=== PATIENT | male | born 1940 | race Caucasian/White ===

== ENCOUNTER 2018-05-05 15:50 | Inpatient (IN) ==
[2018-05-05] MEDS ORDERED: ALBUTEROL/IPRATROPIUM 3 ML NEB RESP TX STA (17:06)
[2018-05-05 17:20] LABS: Basophils % 0.2 % (0.0-0.8); Hematocrit 35.6 VOL% (42.0-52.0); Hemoglobin 11.3 GM/DL (14.0-18.0); Immature Granulocytes % 2.1 %; Immature Granulocytes Absolute 0.29 #; Lymphocytes # 1.8 10*3/uL (1.4-4.0); Lymphocytes % 13.3 % (21.2-54.2); Mean Corpuscular HGB Conc 31.7 GM/DL (32-36); Mean Corpuscular Hemoglobin 30 PG (27-34); Mean Corpuscular Volume 95.2 FL (87-102); Mean Platelet Volume 9.6 FL (9.6-12.0); Monocytes # 0.2 10*3/uL (0.11-0.8); Monocytes % 1.1 % (1.7-12.7); Neutrophils # 11.6 10*3/uL (1.4-7.4); Neutrophils % 83.3 % (38.7-73.9); Platelet Count 293 T/CUMM (130-400); Red Blood Count 3.74 MC/CUMM (3.8-5.5); Red Cell Distribution Width 14.3 % (9.3-17.3); White Blood Count 13.9 T/CUMM (4-12)
[2018-05-05 17:28] LABS: PT Patient Result 10.9 SECS; Partial Thromboplastin Time 28.3 SECS (0-40)
[2018-05-05 17:34] LABS: Alanine Aminotransferase 17 U/L (16-61); Albumin 3.2 G/DL (3.4-5.0); Alkaline Phosphatase 72 U/L (45-117); Aspartate Amino Transferase 11 U/L (0-37); Bilirubin,Total < 0.39 MG/DL (0.2-1.0); Blood Urea Nitrogen 17 MG/DL (7-18); Calcium 8.8 MG/DL (8.5-10.1); Glucose 347 MG/DL (74-106); Osmolality,Calculated 277.7 MOS/KG (273-304); Potassium 4.3 MMOL/L (3.5-5.1); Sodium 131 MMOL/L (136-145); Total Protein 7.1 G/DL (6.4-8.3); Troponin I Only 0.033 NG/ML (0.00-0.045)
[2018-05-05] MEDS ORDERED: methylPREDNISolone SOD SUC 125 MG/2 ML VIAL IV STA (18:46)
[2018-05-05] MEDS ORDERED: ALBUTEROL 2.5 MG/3 ML NEB RESP TX PRN (22:56)
[2018-05-05] MEDS ORDERED: MORPHINE 4 MG/1 ML VIAL IV PRN (23:01)
[2018-05-05] MEDS ORDERED: GLUCAGON 1 MG VIAL IM PRN (23:01)
[2018-05-05] MEDS ORDERED: DEXTROSE 50% 25 GM/50 ML VIAL IV PRN (23:01)
[2018-05-05] MEDS ORDERED: ONDANSETRON 4 MG/2 ML VIAL IV PRN (23:01)
[2018-05-05] MEDS ORDERED: LEVOFLOXACIN INJ 150 ML IV ONE (23:16)
[2018-05-05] MEDS: LEVOFLOXACIN INJ 750 MG in PREMIX 1 EACH IV SCH (23:24)
[2018-05-05] MEDS: ACETAMINOPHEN 325 MG TABLET PO PRN (23:27)
[2018-05-06] MEDS: ALBUTEROL/IPRATROPIUM 3 ML NEB RESP TX SCH ×4 (01:18→19:15)
[2018-05-06] MEDS: AZTREONAM 2,000 MG in SYRINGE 1 EACH IV SCH ×4 (03:55→20:53)
[2018-05-06 07:31] LABS: Basophils % 0.1 % (0.0-0.8); Hematocrit 31.9 VOL% (42.0-52.0); Hemoglobin 10.4 GM/DL (14.0-18.0); Immature Granulocytes % 1.7 %; Immature Granulocytes Absolute 0.19 #; Lymphocytes # 2.7 10*3/uL (1.4-4.0); Lymphocytes % 24.4 % (21.2-54.2); Mean Corpuscular HGB Conc 32.6 GM/DL (32-36); Mean Corpuscular Hemoglobin 30 PG (27-34); Mean Corpuscular Volume 92.2 FL (87-102); Mean Platelet Volume 9.2 FL (9.6-12.0); Monocytes # 0.5 10*3/uL (0.11-0.8); Monocytes % 4.4 % (1.7-12.7); Neutrophils # 7.8 10*3/uL (1.4-7.4); Neutrophils % 69.4 % (38.7-73.9); Platelet Count 282 T/CUMM (130-400); Red Blood Count 3.46 MC/CUMM (3.8-5.5); White Blood Count 11.2 T/CUMM (4-12)
[2018-05-06 07:49] LABS: Calcium 8.8 MG/DL (8.5-10.1); Osmolality,Calculated 265.9 MOS/KG (273-304); Potassium 4.3 MMOL/L (3.5-5.1)
[2018-05-06] MEDS: ENOXAPARIN 40 MG/0.4 ML SYRINGE SUBCUT SCH (09:46)
[2018-05-06] MEDS: methylPREDNISolone SOD SUC 40 MG/1 ML VIAL IV SCH (09:48)
[2018-05-06] MEDS: INSULIN REGULAR 100 UNIT/ML SUBCUT SCH ×4 (09:51→20:53)
[2018-05-06] MEDS: SODIUM CHLORIDE 0.9% 1,000 ML IV SCH (09:58)
[2018-05-06] MEDS: THEOPHYLLINE ER 300 MG TABLET PO SCH ×2 (15:35→20:52)
[2018-05-06] MEDS: ACETAMINOPHEN 325 MG TABLET PO PRN (20:52)
[2018-05-06] MEDS: GABAPENTIN 300 MG CAPSULE PO SCH (20:52)
[2018-05-06] MEDS: LEVOFLOXACIN INJ 750 MG in PREMIX 1 EACH IV SCH (23:31)
[2018-05-07] MEDS ORDERED: MELATONIN 3 MG TABLET PO ONE (00:30)
[2018-05-07] MEDS: AZTREONAM 2,000 MG in SYRINGE 1 EACH IV SCH ×4 (03:56→21:38)
[2018-05-07] MEDS: SODIUM CHLORIDE 0.9% 1,000 ML IV SCH (04:00)
[2018-05-07 06:59] LABS: Basophils % 0.2 % (0.0-0.8); Hematocrit 31.2 VOL% (42.0-52.0); Hemoglobin 10.2 GM/DL (14.0-18.0); Immature Granulocytes % 1.5 %; Immature Granulocytes Absolute 0.26 #; Lymphocytes # 3.4 10*3/uL (1.4-4.0); Lymphocytes % 19.9 % (21.2-54.2); Mean Corpuscular HGB Conc 32.7 GM/DL (32-36); Mean Corpuscular Hemoglobin 30 PG (27-34); Mean Corpuscular Volume 91.8 FL (87-102); Mean Platelet Volume 8.9 FL (9.6-12.0); Monocytes # 1.3 10*3/uL (0.11-0.8); Monocytes % 7.5 % (1.7-12.7); Neutrophils # 12.1 10*3/uL (1.4-7.4); Neutrophils % 70.9 % (38.7-73.9); Platelet Count 278 T/CUMM (130-400); Red Cell Distribution Width 14.2 % (9.3-17.3); White Blood Count 17.1 T/CUMM (4-12)
[2018-05-07 07:16] LABS: Calcium 8.9 MG/DL (8.5-10.1); Osmolality,Calculated 269.2 MOS/KG (273-304); Potassium 4.4 MMOL/L (3.5-5.1)
[2018-05-07] MEDS ORDERED: ALBUTEROL 2.5 MG/3 ML NEB RESP TX PRN (07:45)
[2018-05-07] MEDS: ALBUTEROL/IPRATROPIUM 3 ML NEB RESP TX SCH ×4 (07:53→19:18)
[2018-05-07] MEDS ORDERED: Umeclidinium Bromide [Incruse Ellipta] 1 PUFF INH SCH (09:00)
[2018-05-07] MEDS: THEOPHYLLINE ER 300 MG TABLET PO SCH ×2 (09:50→21:37)
[2018-05-07] MEDS: ACETAMINOPHEN 325 MG TABLET PO PRN ×2 (09:50→21:38)
[2018-05-07] MEDS: metFORMIN 500 MG TABLET PO SCH ×2 (09:51→17:24)
[2018-05-07] MEDS: FUROSEMIDE 20 MG TABLET PO SCH (09:51)
[2018-05-07] MEDS: METOPROLOL SUCCINATE XL 25 MG TABLET PO SCH (09:51)
[2018-05-07] MEDS: GABAPENTIN 300 MG CAPSULE PO SCH ×2 (09:51→21:38)
[2018-05-07] MEDS: PANTOPRAZOLE 40 MG TABLET PO SCH (09:51)
[2018-05-07] MEDS: INSULIN REGULAR 100 UNIT/ML SUBCUT SCH ×3 (09:52→17:24)
[2018-05-07] MEDS: methylPREDNISolone SOD SUC 40 MG/1 ML VIAL IV SCH (09:52)
[2018-05-07] MEDS: ASPIRIN EC 81 MG TABLET PO SCH (09:52)
[2018-05-07] MEDS: ENOXAPARIN 40 MG/0.4 ML SYRINGE SUBCUT SCH (09:52)
[2018-05-07] MEDS: SIMVASTATIN 40 MG TABLET PO SCH (21:38)
[2018-05-07] MEDS: LEVOFLOXACIN INJ 750 MG in PREMIX 1 EACH IV SCH (23:23)
[2018-05-08] MEDS: ALBUTEROL/IPRATROPIUM 3 ML NEB RESP TX SCH ×4 (00:23→19:12)
[2018-05-08] MEDS: INSULIN REGULAR 100 UNIT/ML SUBCUT SCH ×5 (01:22→21:40)
[2018-05-08] MEDS: AZTREONAM 2,000 MG in SYRINGE 1 EACH IV SCH ×4 (03:19→22:16)
[2018-05-08] MEDS: SODIUM CHLORIDE 0.9% 1,000 ML IV SCH ×2 (03:20→21:41)
[2018-05-08 06:50] LABS: Basophils % 0.1 % (0.0-0.8); Eosinophils % 0.1 % (0.00-10.9); Hematocrit 29.3 VOL% (42.0-52.0); Hemoglobin 9.4 GM/DL (14.0-18.0); Immature Granulocytes % 1.8 %; Immature Granulocytes Absolute 0.26 #; Lymphocytes # 2.7 10*3/uL (1.4-4.0); Lymphocytes % 19.2 % (21.2-54.2); Mean Corpuscular HGB Conc 32.1 GM/DL (32-36); Mean Corpuscular Hemoglobin 30 PG (27-34); Mean Platelet Volume 8.9 FL (9.6-12.0); Monocytes # 1.1 10*3/uL (0.11-0.8); Monocytes % 7.7 % (1.7-12.7); Neutrophils % 71.1 % (38.7-73.9); Platelet Count 246 T/CUMM (130-400); Red Blood Count 3.15 MC/CUMM (3.8-5.5); Red Cell Distribution Width 14.3 % (9.3-17.3); White Blood Count 14.1 T/CUMM (4-12)
[2018-05-08 07:13] LABS: Calcium 8.4 MG/DL (8.5-10.1); Osmolality,Calculated 266.2 MOS/KG (273-304); Potassium 3.5 MMOL/L (3.5-5.1)
[2018-05-08] MEDS: GABAPENTIN 300 MG CAPSULE PO SCH ×2 (10:05→21:40)
[2018-05-08] MEDS: METOPROLOL SUCCINATE XL 25 MG TABLET PO SCH (10:06)
[2018-05-08] MEDS: ASPIRIN EC 81 MG TABLET PO SCH (10:06)
[2018-05-08] MEDS: THEOPHYLLINE ER 300 MG TABLET PO SCH ×2 (10:06→21:40)
[2018-05-08] MEDS: PANTOPRAZOLE 40 MG TABLET PO SCH (10:06)
[2018-05-08] MEDS: methylPREDNISolone SOD SUC 40 MG/1 ML VIAL IV SCH (10:06)
[2018-05-08] MEDS: ENOXAPARIN 40 MG/0.4 ML SYRINGE SUBCUT SCH (10:07)
[2018-05-08] MEDS: ACETAMINOPHEN 325 MG TABLET PO PRN ×2 (10:20→21:39)
[2018-05-08] MEDS: metFORMIN 500 MG TABLET PO SCH ×2 (10:22→17:39)
[2018-05-08] MEDS: FUROSEMIDE 20 MG TABLET PO SCH (10:22)
[2018-05-08] MEDS: SIMVASTATIN 40 MG TABLET PO SCH (21:40)
[2018-05-08] MEDS: MELATONIN 3 MG TABLET PO PRN (21:40)
[2018-05-08] MEDS: LEVOFLOXACIN INJ 750 MG in PREMIX 1 EACH IV SCH (22:17)
[2018-05-09] MEDS: ALBUTEROL/IPRATROPIUM 3 ML NEB RESP TX SCH ×4 (00:33→19:13)
[2018-05-09] MEDS: AZTREONAM 2,000 MG in SYRINGE 1 EACH IV SCH ×4 (04:07→21:54)
[2018-05-09] MEDS: INSULIN REGULAR 100 UNIT/ML SUBCUT SCH ×4 (07:30→21:53)
[2018-05-09] MEDS: THEOPHYLLINE ER 300 MG TABLET PO SCH ×2 (08:42→21:53)
[2018-05-09] MEDS: metFORMIN 500 MG TABLET PO SCH ×2 (08:42→16:57)
[2018-05-09] MEDS: ENOXAPARIN 40 MG/0.4 ML SYRINGE SUBCUT SCH (08:42)
[2018-05-09] MEDS: PANTOPRAZOLE 40 MG TABLET PO SCH (08:42)
[2018-05-09] MEDS: GABAPENTIN 300 MG CAPSULE PO SCH ×2 (08:42→21:53)
[2018-05-09] MEDS: METOPROLOL SUCCINATE XL 25 MG TABLET PO SCH (08:42)
[2018-05-09] MEDS: ASPIRIN EC 81 MG TABLET PO SCH (08:42)
[2018-05-09] MEDS: FUROSEMIDE 20 MG TABLET PO SCH (08:42)
[2018-05-09] MEDS: methylPREDNISolone SOD SUC 40 MG/1 ML VIAL IV SCH (08:43)
[2018-05-09] MEDS: MELATONIN 3 MG TABLET PO PRN (21:53)
[2018-05-09] MEDS: SIMVASTATIN 40 MG TABLET PO SCH (21:53)
[2018-05-09] MEDS: SODIUM CHLORIDE 0.9% 1,000 ML IV SCH (21:55)
[2018-05-09] MEDS: LEVOFLOXACIN INJ 750 MG in PREMIX 1 EACH IV SCH (22:03)
[2018-05-10] MEDS: ALBUTEROL/IPRATROPIUM 3 ML NEB RESP TX SCH ×2 (00:25→07:55)
[2018-05-10] MEDS: ACETAMINOPHEN 325 MG TABLET PO PRN (00:48)
[2018-05-10] MEDS: AZTREONAM 2,000 MG in SYRINGE 1 EACH IV SCH ×2 (04:12→09:50)
[2018-05-10] MEDS ORDERED: predniSONE 20 MG TABLET PO SCH (09:00)
[2018-05-10] MEDS: INSULIN REGULAR 100 UNIT/ML SUBCUT SCH (09:40)
[2018-05-10] MEDS: PANTOPRAZOLE 40 MG TABLET PO SCH (09:41)
[2018-05-10] MEDS: THEOPHYLLINE ER 300 MG TABLET PO SCH (09:41)
[2018-05-10] MEDS: metFORMIN 500 MG TABLET PO SCH (09:41)
[2018-05-10] MEDS: ASPIRIN EC 81 MG TABLET PO SCH (09:41)
[2018-05-10] MEDS: FUROSEMIDE 20 MG TABLET PO SCH (09:42)
[2018-05-10] MEDS: ENOXAPARIN 40 MG/0.4 ML SYRINGE SUBCUT SCH (09:42)
[2018-05-10] MEDS: METOPROLOL SUCCINATE XL 25 MG TABLET PO SCH (09:42)
[2018-05-10] MEDS: GABAPENTIN 300 MG CAPSULE PO SCH (09:42)
[2018-05-10 10:38] VITALS: BP 101/50
== END 2018-05-10 11:22 | disposition home or self-care (01) | DRG 199 ==
LOC: N.ED 15:50 → N.EDINP 22:45 → N.5E 23:39

== ENCOUNTER 2018-05-19 10:39 | Inpatient (IN) ==
[2018-05-19] MEDS ORDERED: ALBUTEROL 2.5 MG/3 ML NEB RESP TX PRN ×2 (13:11→14:06)
[2018-05-19] MEDS ORDERED: ACETAMINOPHEN 325 MG TABLET PO PRN (13:11)
[2018-05-19] MEDS ORDERED: GLUCAGON 1 MG VIAL IM PRN (13:40)
[2018-05-19] MEDS ORDERED: DEXTROSE 50% 25 GM/50 ML VIAL IV PRN (13:40)
[2018-05-19 13:44] LABS: ABG Base Excess 6.8 MMOL/L (-2.5-2.5); ABG HCO3 30.6 MMOL/L (20-26); ABG Oxygen Saturation 98.8 % (95-100); ABG PCO2 67.8 MM HG (35-48); ABG TCO2 32.1 MMOL/L (23-27); Allen Test Positive; Pt O2 Delivery Device BIPAP
[2018-05-19 14:43] LABS: Apearance,Urine CLEAR (Clear); Bilirubin,Urine Negative (Negative); Blood, Urine Small mg/dL (Negative); Glucose,Urine (UA) Negative (Negative); Hyaline Casts,Urine 8 /LPF (0-3); Ketones,Urine Negative (Negative); Mucus,Urine Occasional /LPF (Occasional); Nitrite,Urine Negative (Negative); Protein,Urine Negative; RBC,Urine 2 /HPF (0-4); Squamous Epithelial Cell,Urine Occasional /HPF (0-10); Urine Color Yellow (Yellow); Urine Urobilinogen < 2.0 EU/DL (0.2-1.0); WBC,Urine 1 /HPF (0-6)
[2018-05-19 14:44] LABS: INR 1.1; PT Patient Result 11.5 SECS
[2018-05-19 14:47] LABS: Lactic Acid 1.7 MMOL/L (0.4-2.0)
[2018-05-19] MEDS ORDERED: FUROSEMIDE 40 MG/4 ML VIAL IV ONE (14:47)
[2018-05-19] MEDS ORDERED: MAGNESIUM SULF RIDER 4 GM in PREMIX 1 EACH IV PRN (14:50)
[2018-05-19] MEDS ORDERED: MAGNESIUM SULF RIDER 2 GM in PREMIX 1 EACH IV PRN (14:50)
[2018-05-19 14:51] LABS: CKMB % 13.5 %
[2018-05-19 14:52] LABS: Troponin I Only 33.7 NG/ML (0.00-0.045)
[2018-05-19] MEDS: METOPROLOL SUCCINATE XL 25 MG TABLET PO SCH (14:53)
[2018-05-19] MEDS: PANTOPRAZOLE 40 MG VIAL IV SCH (14:53)
[2018-05-19] MEDS: methylPREDNISolone SOD SUC 40 MG/1 ML VIAL IV SCH ×2 (15:06→22:45)
[2018-05-19 15:41] LABS: Basophils % 0.2 % (0.0-0.8); Hematocrit 30.9 VOL% (42.0-52.0); Immature Granulocytes % 1.1 %; Immature Granulocytes Absolute 0.15 #; Lymphocytes # 1.7 10*3/uL (1.4-4.0); Lymphocytes % 12.6 % (21.2-54.2); Mean Corpuscular HGB Conc 32.4 GM/DL (32-36); Mean Corpuscular Hemoglobin 30 PG (27-34); Mean Corpuscular Volume 92.2 FL (87-102); Mean Platelet Volume 9.8 FL (9.6-12.0); Monocytes # 0.7 10*3/uL (0.11-0.8); Monocytes % 5.1 % (1.7-12.7); Neutrophils # 10.6 10*3/uL (1.4-7.4); Platelet Count 291 T/CUMM (130-400); Red Blood Count 3.35 MC/CUMM (3.8-5.5); White Blood Count 13.1 T/CUMM (4-12)
[2018-05-19 16:04] LABS: Albumin 2.9 G/DL (3.4-5.0); Bilirubin,Direct 0.12 MG/DL (0.0-0.20); Bilirubin,Indirect 0.3 MG/DL (0.0-1.0); Bilirubin,Total 0.4 MG/DL (0.2-1.0); Calcium 8.5 MG/DL (8.5-10.1); Osmolality,Calculated 261.9 MOS/KG (273-304); Potassium 3.6 MMOL/L (3.5-5.1); Total Protein 6.7 G/DL (6.4-8.3)
[2018-05-19] MEDS: CEFTAROLINE 600 MG in SODIUM CHLORIDE 0.9% 100 ML IV SCH (16:45)
[2018-05-19] MEDS: INSULIN LISPRO 100 UNIT/ML SUBCUT SCH ×2 (17:33→21:08)
[2018-05-19] MEDS: ENOXAPARIN 80 MG/0.8 ML SYRINGE SUBCUT SCH (18:07)
[2018-05-19] MEDS: BUDESONIDE 0.5 MG/2 ML NEB RESP TX SCH (19:10)
[2018-05-19 20:47] LABS: CKMB % 12.4 %
[2018-05-19] MEDS: THEOPHYLLINE ER 300 MG TABLET PO SCH (21:08)
[2018-05-19] MEDS: SIMVASTATIN 40 MG TABLET PO SCH (21:08)
[2018-05-19] MEDS: GABAPENTIN 300 MG CAPSULE PO SCH (21:08)
[2018-05-20 01:19] LABS: Basophils % 0.1 % (0.0-0.8); Hematocrit 30.5 VOL% (42.0-52.0); Hemoglobin 9.8 GM/DL (14.0-18.0); Immature Granulocytes % 2.4 %; Immature Granulocytes Absolute 0.23 #; Lymphocytes # 1.7 10*3/uL (1.4-4.0); Lymphocytes % 17.7 % (21.2-54.2); Mean Corpuscular HGB Conc 32.1 GM/DL (32-36); Mean Corpuscular Hemoglobin 30 PG (27-34); Mean Corpuscular Volume 92.1 FL (87-102); Mean Platelet Volume 9.7 FL (9.6-12.0); Monocytes # 0.4 10*3/uL (0.11-0.8); Monocytes % 4.7 % (1.7-12.7); Neutrophils # 7.1 10*3/uL (1.4-7.4); Neutrophils % 75.1 % (38.7-73.9); Platelet Count 283 T/CUMM (130-400); Red Blood Count 3.31 MC/CUMM (3.8-5.5); Red Cell Distribution Width 13.8 % (9.3-17.3); White Blood Count 9.5 T/CUMM (4-12)
[2018-05-20 01:37] LABS: Calcium 8.2 MG/DL (8.5-10.1); Osmolality,Calculated 266.7 MOS/KG (273-304); Potassium 3.8 MMOL/L (3.5-5.1)
[2018-05-20 01:41] LABS: CKMB % 13.7 %
[2018-05-20 01:44] LABS: Troponin I Only 18.8 NG/ML (0.00-0.045)
[2018-05-20] MEDS: ENOXAPARIN 80 MG/0.8 ML SYRINGE SUBCUT SCH ×2 (04:30→17:08)
[2018-05-20] MEDS: CEFTAROLINE 600 MG in SODIUM CHLORIDE 0.9% 100 ML IV SCH ×2 (04:30→14:57)
[2018-05-20] MEDS: methylPREDNISolone SOD SUC 40 MG/1 ML VIAL IV SCH ×3 (06:29→23:47)
[2018-05-20] MEDS ORDERED: FUROSEMIDE 40 MG/4 ML VIAL IV ONE (06:47)
[2018-05-20] MEDS: BUDESONIDE 0.5 MG/2 ML NEB RESP TX SCH ×2 (07:06→19:11)
[2018-05-20] MEDS: INSULIN LISPRO 100 UNIT/ML SUBCUT SCH ×4 (07:29→21:35)
[2018-05-20] MEDS: THEOPHYLLINE ER 300 MG TABLET PO SCH ×2 (08:29→21:35)
[2018-05-20] MEDS: GABAPENTIN 300 MG CAPSULE PO SCH ×2 (08:29→21:35)
[2018-05-20] MEDS: METOPROLOL SUCCINATE XL 25 MG TABLET PO SCH (08:29)
[2018-05-20] MEDS: ASPIRIN EC 81 MG TABLET PO SCH (08:29)
[2018-05-20] MEDS ORDERED: UMECLIDINIUM BROMIDE INH SCH (09:00)
[2018-05-20] MEDS: PANTOPRAZOLE 40 MG VIAL IV SCH (14:45)
[2018-05-20] MEDS: SIMVASTATIN 40 MG TABLET PO SCH (21:35)
[2018-05-21] MEDS: CEFTAROLINE 600 MG in SODIUM CHLORIDE 0.9% 100 ML IV SCH ×2 (04:20→15:36)
[2018-05-21] MEDS: ENOXAPARIN 80 MG/0.8 ML SYRINGE SUBCUT SCH ×2 (04:21→16:43)
[2018-05-21 04:32] LABS: Basophils % 0.1 % (0.0-0.8); Hematocrit 28.9 VOL% (42.0-52.0); Hemoglobin 9.4 GM/DL (14.0-18.0); Immature Granulocytes % 1.1 %; Lymphocytes % 10.6 % (21.2-54.2); Mean Corpuscular HGB Conc 32.5 GM/DL (32-36); Mean Corpuscular Hemoglobin 30 PG (27-34); Mean Corpuscular Volume 90.6 FL (87-102); Mean Platelet Volume 10.3 FL (9.6-12.0); Monocytes # 0.8 10*3/uL (0.11-0.8); Monocytes % 4.5 % (1.7-12.7); NRBC # 0.03 10*3/uL; Neutrophils # 15.5 10*3/uL (1.4-7.4); Neutrophils % 83.7 % (38.7-73.9); Platelet Count 325 T/CUMM (130-400); Red Blood Count 3.19 MC/CUMM (3.8-5.5); Red Cell Distribution Width 13.7 % (9.3-17.3); White Blood Count 18.5 T/CUMM (4-12)
[2018-05-21 04:46] LABS: Calcium 8.9 MG/DL (8.5-10.1); Osmolality,Calculated 269.7 MOS/KG (273-304); Potassium 4.1 MMOL/L (3.5-5.1)
[2018-05-21 04:50] LABS: VLDL CHOLESTEROL 17.6 MG/DL
[2018-05-21 04:51] LABS: Risk Ratio 2.45
[2018-05-21] MEDS: methylPREDNISolone SOD SUC 40 MG/1 ML VIAL IV SCH ×3 (06:42→22:00)
[2018-05-21] MEDS: BUDESONIDE 0.5 MG/2 ML NEB RESP TX SCH ×2 (07:00→20:06)
[2018-05-21] MEDS: INSULIN LISPRO 100 UNIT/ML SUBCUT SCH ×4 (08:54→20:49)
[2018-05-21] MEDS: METOPROLOL SUCCINATE XL 25 MG TABLET PO SCH (08:55)
[2018-05-21] MEDS: LOSARTAN 25 MG TABLET PO SCH ×2 (08:55→20:48)
[2018-05-21] MEDS: THEOPHYLLINE ER 300 MG TABLET PO SCH ×2 (08:55→20:49)
[2018-05-21] MEDS: ASPIRIN EC 81 MG TABLET PO SCH (08:56)
[2018-05-21] MEDS: FUROSEMIDE 40 MG TABLET PO SCH (08:56)
[2018-05-21] MEDS: GABAPENTIN 300 MG CAPSULE PO SCH ×2 (08:56→20:49)
[2018-05-21 10:14] LABS: CKMB % 19.1 %
[2018-05-21] MEDS: PANTOPRAZOLE 40 MG VIAL IV SCH (15:32)
[2018-05-21] MEDS: SIMVASTATIN 40 MG TABLET PO SCH (20:49)
[2018-05-22] MEDS: CEFTAROLINE 600 MG in SODIUM CHLORIDE 0.9% 100 ML IV SCH ×2 (03:26→15:25)
[2018-05-22] MEDS: ENOXAPARIN 80 MG/0.8 ML SYRINGE SUBCUT SCH ×2 (04:31→17:40)
[2018-05-22 05:07] LABS: Calcium 8.9 MG/DL (8.5-10.1); Osmolality,Calculated 271.9 MOS/KG (273-304); Potassium 4.2 MMOL/L (3.5-5.1)
[2018-05-22 05:10] LABS: Basophils % 0.1 % (0.0-0.8); Hematocrit 30.5 VOL% (42.0-52.0); Hemoglobin 9.8 GM/DL (14.0-18.0); Immature Granulocytes % 1.1 %; Immature Granulocytes Absolute 0.19 #; Lymphocytes # 2.1 10*3/uL (1.4-4.0); Lymphocytes % 11.9 % (21.2-54.2); Mean Corpuscular HGB Conc 32.1 GM/DL (32-36); Mean Corpuscular Hemoglobin 30 PG (27-34); Mean Corpuscular Volume 92.4 FL (87-102); Mean Platelet Volume 11.3 FL (9.6-12.0); Monocytes # 0.7 10*3/uL (0.11-0.8); NRBC # 0.02 10*3/uL; Neutrophils # 14.4 10*3/uL (1.4-7.4); Neutrophils % 82.9 % (38.7-73.9); Platelet Count 252 T/CUMM (130-400); Red Cell Distribution Width 13.7 % (9.3-17.3); White Blood Count 17.3 T/CUMM (4-12)
[2018-05-22] MEDS: methylPREDNISolone SOD SUC 40 MG/1 ML VIAL IV SCH ×2 (06:03→17:40)
[2018-05-22] MEDS: BUDESONIDE 0.5 MG/2 ML NEB RESP TX SCH ×2 (07:33→18:55)
[2018-05-22] MEDS: ASPIRIN EC 81 MG TABLET PO SCH (09:08)
[2018-05-22] MEDS: INSULIN LISPRO 100 UNIT/ML SUBCUT SCH ×3 (09:08→17:39)
[2018-05-22] MEDS: FUROSEMIDE 40 MG TABLET PO SCH (09:08)
[2018-05-22] MEDS: METOPROLOL SUCCINATE XL 25 MG TABLET PO SCH (09:08)
[2018-05-22] MEDS: GABAPENTIN 300 MG CAPSULE PO SCH ×2 (09:08→21:17)
[2018-05-22] MEDS: LOSARTAN 25 MG TABLET PO SCH ×2 (09:08→21:15)
[2018-05-22] MEDS: THEOPHYLLINE ER 300 MG TABLET PO SCH ×2 (09:08→21:17)
[2018-05-22] MEDS: NICOTINE 7 MG/24 HR PATCH TRANSDERM SCH (12:22)
[2018-05-22] MEDS: PANTOPRAZOLE 40 MG VIAL IV SCH (15:25)
[2018-05-22] MEDS: SIMVASTATIN 40 MG TABLET PO SCH (21:17)
[2018-05-23] MEDS: INSULIN LISPRO 100 UNIT/ML SUBCUT SCH ×3 (00:09→12:15)
[2018-05-23] MEDS: CEFTAROLINE 600 MG in SODIUM CHLORIDE 0.9% 100 ML IV SCH (03:45)
[2018-05-23] MEDS: ENOXAPARIN 80 MG/0.8 ML SYRINGE SUBCUT SCH (05:02)
[2018-05-23] MEDS: methylPREDNISolone SOD SUC 40 MG/1 ML VIAL IV SCH (05:05)
[2018-05-23 05:26] LABS: Basophils % 0.1 % (0.0-0.8); Hematocrit 30.9 VOL% (42.0-52.0); Hemoglobin 9.8 GM/DL (14.0-18.0); Immature Granulocytes % 1.1 %; Immature Granulocytes Absolute 0.17 #; Lymphocytes # 2.6 10*3/uL (1.4-4.0); Lymphocytes % 16.8 % (21.2-54.2); Mean Corpuscular HGB Conc 31.7 GM/DL (32-36); Mean Corpuscular Hemoglobin 29 PG (27-34); Mean Corpuscular Volume 92.5 FL (87-102); Mean Platelet Volume 9.7 FL (9.6-12.0); Monocytes % 6.5 % (1.7-12.7); Neutrophils # 11.8 10*3/uL (1.4-7.4); Neutrophils % 75.5 % (38.7-73.9); Platelet Count 302 T/CUMM (130-400); Red Blood Count 3.34 MC/CUMM (3.8-5.5); Red Cell Distribution Width 13.5 % (9.3-17.3); White Blood Count 15.6 T/CUMM (4-12)
[2018-05-23 05:47] LABS: Calcium 8.4 MG/DL (8.5-10.1); Osmolality,Calculated 271.7 MOS/KG (273-304); Potassium 4.1 MMOL/L (3.5-5.1)
[2018-05-23] MEDS: BUDESONIDE 0.5 MG/2 ML NEB RESP TX SCH (07:39)
[2018-05-23] MEDS ORDERED: predniSONE 10 MG TABLET PO SCH (09:00)
[2018-05-23] MEDS: METOPROLOL SUCCINATE XL 25 MG TABLET PO SCH (09:20)
[2018-05-23] MEDS: THEOPHYLLINE ER 300 MG TABLET PO SCH (09:20)
[2018-05-23] MEDS: GABAPENTIN 300 MG CAPSULE PO SCH (09:21)
[2018-05-23] MEDS: ASPIRIN EC 81 MG TABLET PO SCH (09:21)
[2018-05-23] MEDS: LOSARTAN 25 MG TABLET PO SCH (09:21)
[2018-05-23] MEDS: FUROSEMIDE 40 MG TABLET PO SCH (09:21)
[2018-05-23] MEDS: NICOTINE 7 MG/24 HR PATCH TRANSDERM SCH (09:22)
[2018-05-23] MEDS ORDERED: ISOSORBIDE MONONITRATE 30 MG TABLET PO SCH (10:00)
[2018-05-23] MEDS ORDERED: PANTOPRAZOLE 40 MG TABLET PO SCH (11:00)
[2018-05-23 16:27] VITALS: BP 104/59
[2018-05-24] MEDS ORDERED: CLOPIDOGREL 75 MG TABLET PO SCH (09:00)
[2018-05-26] MEDS ORDERED: ERGOCALCIFEROL 50,000 UNIT CAPSULE PO SCH (09:00)
== END 2018-05-23 16:38 | disposition hospice, home (50) | DRG 280 ==
LOC: SUATTDRO 12:12 → N.ICU 12:12 → N.TELEN 05-21 13:24
PROVIDERS: ADMIT Internal Medicine; ATTEND Hospitalist

== ENCOUNTER 2018-05-24 04:58 | Inpatient (IN) ==
[2018-05-24] MEDS ORDERED: ALBUTEROL/IPRATROPIUM 3 ML NEB RESP TX STA (05:20)
[2018-05-24] MEDS ORDERED: methylPREDNISolone SOD SUC 125 MG/2 ML VIAL IV STA (05:20)
[2018-05-24 05:54] LABS: Basophils % 0.1 % (0.0-0.8); Hematocrit 31.5 VOL% (42.0-52.0); Hemoglobin 10.4 GM/DL (14.0-18.0); Immature Granulocytes % 1.5 %; Immature Granulocytes Absolute 0.24 #; Lymphocytes # 2.5 10*3/uL (1.4-4.0); Lymphocytes % 15.6 % (21.2-54.2); Mean Corpuscular Hemoglobin 30 PG (27-34); Mean Platelet Volume 9.8 FL (9.6-12.0); Monocytes # 1.1 10*3/uL (0.11-0.8); Monocytes % 7.2 % (1.7-12.7); Neutrophils # 11.9 10*3/uL (1.4-7.4); Neutrophils % 75.6 % (38.7-73.9); Platelet Count 315 T/CUMM (130-400); Red Blood Count 3.46 MC/CUMM (3.8-5.5); Red Cell Distribution Width 13.8 % (9.3-17.3); White Blood Count 15.8 T/CUMM (4-12)
[2018-05-24 06:11] LABS: Albumin 2.8 G/DL (3.4-5.0); Bilirubin,Total 0.5 MG/DL (0.2-1.0); Osmolality,Calculated 275.2 MOS/KG (273-304); Potassium 3.6 MMOL/L (3.5-5.1); Total Protein 5.9 G/DL (6.4-8.3)
[2018-05-24] MEDS ORDERED: ALBUTEROL 2.5 MG/3 ML NEB RESP TX PRN ×2 (06:15→06:25)
[2018-05-24] MEDS ORDERED: DOCUSATE SODIUM 100 MG CAPSULE PO PRN (06:15)
[2018-05-24] MEDS ORDERED: NITROGLYCERIN SL 0.4 MG TABLET SL PRN (06:25)
[2018-05-24] MEDS ORDERED: metFORMIN 500 MG TABLET PO SCH (08:00)
[2018-05-24] MEDS: ALBUTEROL/IPRATROPIUM 3 ML NEB RESP TX SCH ×3 (08:05→19:36)
[2018-05-24] MEDS: ENOXAPARIN 80 MG/0.8 ML SYRINGE SUBCUT SCH ×2 (08:28→18:45)
[2018-05-24] MEDS ORDERED: ISOSORBIDE MONONITRATE 30 MG TABLET PO SCH (09:00)
[2018-05-24] MEDS: PIOGLITAZONE 15 MG TABLET PO SCH (09:08)
[2018-05-24] MEDS: LOSARTAN 25 MG TABLET PO SCH ×2 (09:09→21:28)
[2018-05-24] MEDS: METOPROLOL SUCCINATE XL 25 MG TABLET PO SCH (09:10)
[2018-05-24] MEDS: PANTOPRAZOLE 40 MG TABLET PO SCH (09:10)
[2018-05-24] MEDS: GABAPENTIN 300 MG CAPSULE PO SCH ×2 (09:11→21:28)
[2018-05-24] MEDS: THEOPHYLLINE ER 300 MG TABLET PO SCH ×2 (09:11→21:28)
[2018-05-24] MEDS: LEVOFLOXACIN 500 MG TABLET PO SCH (09:11)
[2018-05-24] MEDS: NICOTINE 7 MG/24 HR PATCH TRANSDERM SCH (09:13)
[2018-05-24] MEDS: CLOPIDOGREL 75 MG TABLET PO SCH (09:15)
[2018-05-24] MEDS: ASPIRIN EC 81 MG TABLET PO SCH (09:15)
[2018-05-24] MEDS ORDERED: NITROGLYCERIN 2% OINT 1 INCH/GM PACK TOP STA (10:12)
[2018-05-24] MEDS ORDERED: NITROGLYCERIN 2% OINT 1 INCH/GM PACK TOP ONE (10:14)
[2018-05-24] MEDS ORDERED: NITROGLYCERIN 2% OINT 1 INCH/GM PACK TOP SCH (12:00)
[2018-05-24] MEDS: predniSONE 10 MG TABLET PO SCH (12:42)
[2018-05-24] MEDS ORDERED: DEXTROSE 50% 25 GM/50 ML VIAL IV PRN (12:55)
[2018-05-24] MEDS ORDERED: GLUCAGON 1 MG VIAL IM PRN (12:55)
[2018-05-24] MEDS: RANOLAZINE 500 MG TABLET PO SCH ×2 (13:33→21:28)
[2018-05-24] MEDS: FUROSEMIDE 40 MG TABLET PO SCH (13:33)
[2018-05-24] MEDS: INSULIN REGULAR 100 UNIT/ML SUBCUT SCH ×2 (16:54→21:28)
[2018-05-24] MEDS: NITROGLYCERIN 2% OINT 1 INCH/GM PACK TOP SCH ×2 (16:54→22:41)
[2018-05-24] MEDS ORDERED: POTASSIUM CHLORIDE RIDER 10 MEQ in PREMIX 1 EACH IV PRN (17:12)
[2018-05-24] MEDS ORDERED: MAGNESIUM SULF RIDER 2 GM in PREMIX 1 EACH IV PRN (17:12)
[2018-05-24] MEDS ORDERED: SIMVASTATIN 40 MG TABLET PO SCH (21:00)
[2018-05-24] MEDS: ATORVASTATIN 80 MG TABLET PO SCH (21:28)
[2018-05-25] MEDS: ALBUTEROL/IPRATROPIUM 3 ML NEB RESP TX SCH ×4 (01:10→19:32)
[2018-05-25] MEDS: NITROGLYCERIN 2% OINT 1 INCH/GM PACK TOP SCH ×4 (04:20→23:38)
[2018-05-25 04:51] LABS: Basophils % 0.1 % (0.0-0.8); Eosinophils % 0.1 % (0.00-10.9); Hematocrit 31.8 VOL% (42.0-52.0); Hemoglobin 10.1 GM/DL (14.0-18.0); Immature Granulocytes Absolute 0.28 #; Lymphocytes # 2.3 10*3/uL (1.4-4.0); Lymphocytes % 16.1 % (21.2-54.2); Mean Corpuscular HGB Conc 31.8 GM/DL (32-36); Mean Corpuscular Hemoglobin 29 PG (27-34); Mean Corpuscular Volume 92.4 FL (87-102); Monocytes % 6.8 % (1.7-12.7); Neutrophils # 10.8 10*3/uL (1.4-7.4); Neutrophils % 74.9 % (38.7-73.9); Platelet Count 323 T/CUMM (130-400); Red Blood Count 3.44 MC/CUMM (3.8-5.5); White Blood Count 14.3 T/CUMM (4-12)
[2018-05-25 05:09] LABS: Calcium 8.9 MG/DL (8.5-10.1); Osmolality,Calculated 271.2 MOS/KG (273-304); Potassium 3.6 MMOL/L (3.5-5.1)
[2018-05-25 05:10] LABS: Calcium 8.9 MG/DL (8.5-10.1); Osmolality,Calculated 273.1 MOS/KG (273-304); Potassium 3.5 MMOL/L (3.5-5.1)
[2018-05-25] MEDS: SODIUM CHLORIDE 0.9% 1,000 ML IV SCH (06:40)
[2018-05-25] MEDS: ENOXAPARIN 80 MG/0.8 ML SYRINGE SUBCUT SCH (06:53)
[2018-05-25] MEDS: INSULIN REGULAR 100 UNIT/ML SUBCUT SCH ×4 (07:36→20:55)
[2018-05-25] MEDS ORDERED: diphenhydrAMINE CAP 25 MG CAPSULE PO ONE (08:00)
[2018-05-25] MEDS ORDERED: DIAZEPAM 5 MG TABLET PO ONE (08:00)
[2018-05-25] MEDS ORDERED: ASPIRIN 325 MG TABLET PO ONE (08:00)
[2018-05-25] MEDS ORDERED: MIDAZOLAM 2 MG/2 ML VIAL ONE (08:10)
[2018-05-25] MEDS ORDERED: LIDOCAINE 1% 20 ML VIAL ONE (08:10)
[2018-05-25] MEDS ORDERED: fentaNYL 100 MCG/2 ML VIAL ONE (08:11)
[2018-05-25] MEDS: PIOGLITAZONE 15 MG TABLET PO SCH (08:58)
[2018-05-25] MEDS: LOSARTAN 25 MG TABLET PO SCH ×2 (08:58→20:55)
[2018-05-25] MEDS: ASPIRIN EC 81 MG TABLET PO SCH (08:58)
[2018-05-25] MEDS: FUROSEMIDE 40 MG TABLET PO SCH (08:58)
[2018-05-25] MEDS: NICOTINE 7 MG/24 HR PATCH TRANSDERM SCH (08:59)
[2018-05-25] MEDS: LEVOFLOXACIN 500 MG TABLET PO SCH (08:59)
[2018-05-25] MEDS: GABAPENTIN 300 MG CAPSULE PO SCH ×2 (08:59→20:55)
[2018-05-25] MEDS: THEOPHYLLINE ER 300 MG TABLET PO SCH ×2 (09:00→20:55)
[2018-05-25] MEDS: predniSONE 10 MG TABLET PO SCH (09:00)
[2018-05-25] MEDS: PANTOPRAZOLE 40 MG TABLET PO SCH (09:00)
[2018-05-25] MEDS: METOPROLOL SUCCINATE XL 25 MG TABLET PO SCH (09:00)
[2018-05-25] MEDS: CLOPIDOGREL 75 MG TABLET PO SCH (09:00)
[2018-05-25] MEDS: RANOLAZINE 500 MG TABLET PO SCH ×2 (09:00→20:55)
[2018-05-25] MEDS ORDERED: TIROFIBAN 5,000 MCG/100 ML PREMIX IV ONE (09:06)
[2018-05-25] MEDS ORDERED: CLOPIDOGREL 300 MG TABLET ONE (09:57)
[2018-05-25] MEDS ORDERED: TIROFIBAN 5,000 MCG/100 ML PREMIX IV SCH (10:00)
[2018-05-25] MEDS: ACETAMINOPHEN 325 MG TABLET PO PRN (18:53)
[2018-05-25] MEDS: ATORVASTATIN 80 MG TABLET PO SCH (20:55)
[2018-05-26] MEDS: ALBUTEROL/IPRATROPIUM 3 ML NEB RESP TX SCH ×4 (00:18→19:28)
[2018-05-26] MEDS: NITROGLYCERIN 2% OINT 1 INCH/GM PACK TOP SCH ×3 (04:11→17:34)
[2018-05-26 05:10] LABS: Basophils % 0.2 % (0.0-0.8); Eosinophils % 0.2 % (0.00-10.9); Hematocrit 34.1 VOL% (42.0-52.0); Immature Granulocytes Absolute 0.24 #; Lymphocytes # 2.3 10*3/uL (1.4-4.0); Lymphocytes % 18.7 % (21.2-54.2); Mean Corpuscular HGB Conc 32.3 GM/DL (32-36); Mean Corpuscular Hemoglobin 30 PG (27-34); Mean Corpuscular Volume 92.9 FL (87-102); Mean Platelet Volume 10.1 FL (9.6-12.0); Monocytes # 0.8 10*3/uL (0.11-0.8); Monocytes % 6.8 % (1.7-12.7); Neutrophils # 8.9 10*3/uL (1.4-7.4); Neutrophils % 72.1 % (38.7-73.9); Platelet Count 287 T/CUMM (130-400); Red Blood Count 3.67 MC/CUMM (3.8-5.5); Red Cell Distribution Width 14.6 % (9.3-17.3); White Blood Count 12.3 T/CUMM (4-12)
[2018-05-26 05:37] LABS: Calcium 8.1 MG/DL (8.5-10.1); Osmolality,Calculated 276.2 MOS/KG (273-304); Potassium 3.4 MMOL/L (3.5-5.1)
[2018-05-26] MEDS: SODIUM CHLORIDE 0.9% 1,000 ML IV SCH (05:46)
[2018-05-26] MEDS ORDERED: FUROSEMIDE 20 MG/2 ML VIAL IV ONE (07:04)
[2018-05-26] MEDS: POTASSIUM CHLORIDE 20 MEQ TABLET PO PRN ×3 (07:27→12:15)
[2018-05-26] MEDS: INSULIN REGULAR 100 UNIT/ML SUBCUT SCH ×3 (08:32→21:37)
[2018-05-26] MEDS: NICOTINE 7 MG/24 HR PATCH TRANSDERM SCH (10:14)
[2018-05-26] MEDS: GABAPENTIN 300 MG CAPSULE PO SCH ×2 (10:15→20:52)
[2018-05-26] MEDS: THEOPHYLLINE ER 300 MG TABLET PO SCH ×2 (10:15→20:52)
[2018-05-26] MEDS: PANTOPRAZOLE 40 MG TABLET PO SCH (10:15)
[2018-05-26] MEDS: LOSARTAN 25 MG TABLET PO SCH (10:15)
[2018-05-26] MEDS: RANOLAZINE 500 MG TABLET PO SCH ×2 (10:16→20:53)
[2018-05-26] MEDS: PIOGLITAZONE 15 MG TABLET PO SCH (10:17)
[2018-05-26] MEDS: LEVOFLOXACIN 500 MG TABLET PO SCH (10:17)
[2018-05-26] MEDS: ASPIRIN EC 81 MG TABLET PO SCH (10:17)
[2018-05-26] MEDS: FUROSEMIDE 40 MG TABLET PO SCH (10:17)
[2018-05-26] MEDS: predniSONE 10 MG TABLET PO SCH (10:17)
[2018-05-26] MEDS: CLOPIDOGREL 75 MG TABLET PO SCH (10:17)
[2018-05-26] MEDS: METOPROLOL SUCCINATE XL 50 MG TABLET PO SCH (10:18)
[2018-05-26] MEDS: ATORVASTATIN 80 MG TABLET PO SCH (20:53)
[2018-05-26] MEDS ORDERED: ALUM/MAG/SIMETH/LIDO VISC 1:1 30 ML BOTTLE PO ONE (21:10)
[2018-05-27] MEDS: ALBUTEROL/IPRATROPIUM 3 ML NEB RESP TX SCH ×4 (00:32→21:30)
[2018-05-27] MEDS: NITROGLYCERIN 2% OINT 1 INCH/GM PACK TOP SCH (04:15)
[2018-05-27 04:38] LABS: Basophils % 0.2 % (0.0-0.8); Eosinophils % 0.2 % (0.00-10.9); Hematocrit 31.6 VOL% (42.0-52.0); Hemoglobin 10.2 GM/DL (14.0-18.0); Immature Granulocytes % 2.8 %; Lymphocytes # 2.2 10*3/uL (1.4-4.0); Lymphocytes % 15.6 % (21.2-54.2); Mean Corpuscular HGB Conc 32.3 GM/DL (32-36); Mean Corpuscular Hemoglobin 30 PG (27-34); Mean Corpuscular Volume 94.3 FL (87-102); Monocytes # 1.1 10*3/uL (0.11-0.8); Monocytes % 7.9 % (1.7-12.7); Neutrophils # 10.4 10*3/uL (1.4-7.4); Neutrophils % 73.3 % (38.7-73.9); Platelet Count 252 T/CUMM (130-400); Red Blood Count 3.35 MC/CUMM (3.8-5.5); Red Cell Distribution Width 14.6 % (9.3-17.3); White Blood Count 14.2 T/CUMM (4-12)
[2018-05-27 04:50] LABS: Calcium 8.2 MG/DL (8.5-10.1); Osmolality,Calculated 270.4 MOS/KG (273-304); Potassium 3.8 MMOL/L (3.5-5.1)
[2018-05-27] MEDS: MORPHINE 4 MG/1 ML VIAL IV PRN (09:34)
[2018-05-27] MEDS: THEOPHYLLINE ER 300 MG TABLET PO SCH ×2 (09:39→22:29)
[2018-05-27] MEDS: predniSONE 10 MG TABLET PO SCH (09:40)
[2018-05-27] MEDS: METOPROLOL SUCCINATE XL 50 MG TABLET PO SCH (09:40)
[2018-05-27] MEDS: PANTOPRAZOLE 40 MG TABLET PO SCH (09:40)
[2018-05-27] MEDS: ASPIRIN EC 81 MG TABLET PO SCH (09:40)
[2018-05-27] MEDS: LEVOFLOXACIN 500 MG TABLET PO SCH (09:41)
[2018-05-27] MEDS: GABAPENTIN 300 MG CAPSULE PO SCH ×2 (09:41→22:29)
[2018-05-27] MEDS: ENOXAPARIN 40 MG/0.4 ML SYRINGE SUBCUT SCH (09:41)
[2018-05-27] MEDS: CLOPIDOGREL 75 MG TABLET PO SCH (09:41)
[2018-05-27] MEDS: INSULIN REGULAR 100 UNIT/ML SUBCUT SCH ×5 (09:42→22:29)
[2018-05-27] MEDS: NICOTINE 7 MG/24 HR PATCH TRANSDERM SCH (10:44)
[2018-05-27] MEDS: methylPREDNISolone SOD SUC 40 MG/1 ML VIAL IV SCH ×2 (13:54→22:35)
[2018-05-27] MEDS: FUROSEMIDE 40 MG/4 ML VIAL IV SCH (13:56)
[2018-05-27] MEDS: RANOLAZINE 500 MG TABLET PO SCH ×2 (13:58→22:29)
[2018-05-27] MEDS: MEROPENEM 500 MG in SODIUM CHLORIDE 0.9% 100 ML IV SCH ×2 (13:59→18:24)
[2018-05-27] MEDS: ATORVASTATIN 80 MG TABLET PO SCH (22:29)
[2018-05-28] MEDS: ALBUTEROL/IPRATROPIUM 3 ML NEB RESP TX SCH ×4 (01:34→20:23)
[2018-05-28] MEDS: MEROPENEM 500 MG in SODIUM CHLORIDE 0.9% 100 ML IV SCH ×3 (03:01→18:40)
[2018-05-28 04:18] LABS: Basophils % 0.1 % (0.0-0.8); Hemoglobin 10.2 GM/DL (14.0-18.0); Immature Granulocytes % 2.2 %; Immature Granulocytes Absolute 0.17 #; Lymphocytes # 1.7 10*3/uL (1.4-4.0); Lymphocytes % 22.2 % (21.2-54.2); Mean Corpuscular HGB Conc 31.9 GM/DL (32-36); Mean Corpuscular Hemoglobin 30 PG (27-34); Mean Corpuscular Volume 93.3 FL (87-102); Mean Platelet Volume 10.1 FL (9.6-12.0); Monocytes # 0.3 10*3/uL (0.11-0.8); Monocytes % 3.2 % (1.7-12.7); Neutrophils # 5.6 10*3/uL (1.4-7.4); Neutrophils % 72.3 % (38.7-73.9); Platelet Count 275 T/CUMM (130-400); Red Blood Count 3.43 MC/CUMM (3.8-5.5); Red Cell Distribution Width 14.6 % (9.3-17.3); White Blood Count 7.8 T/CUMM (4-12)
[2018-05-28 04:43] LABS: Calcium 8.5 MG/DL (8.5-10.1); Osmolality,Calculated 275.7 MOS/KG (273-304); Potassium 3.9 MMOL/L (3.5-5.1)
[2018-05-28 04:44] LABS: Calcium 8.7 MG/DL (8.5-10.1); Osmolality,Calculated 276.5 MOS/KG (273-304); Potassium 3.9 MMOL/L (3.5-5.1)
[2018-05-28 09:05] LABS: Lymphocytes 11 % (20-55); Platelet Estimate Normal; Segmented Neutrophils 85 % (50-85); Total Cells Counted 100
[2018-05-28] MEDS: GABAPENTIN 300 MG CAPSULE PO SCH ×2 (11:24→21:50)
[2018-05-28] MEDS: RANOLAZINE 500 MG TABLET PO SCH ×2 (11:24→21:50)
[2018-05-28] MEDS: THEOPHYLLINE ER 300 MG TABLET PO SCH ×2 (11:24→21:50)
[2018-05-28] MEDS: PANTOPRAZOLE 40 MG TABLET PO SCH (11:25)
[2018-05-28] MEDS: LEVOFLOXACIN 500 MG TABLET PO SCH (11:25)
[2018-05-28] MEDS: ASPIRIN EC 81 MG TABLET PO SCH (11:26)
[2018-05-28] MEDS: CLOPIDOGREL 75 MG TABLET PO SCH (11:26)
[2018-05-28] MEDS: NICOTINE 7 MG/24 HR PATCH TRANSDERM SCH (11:27)
[2018-05-28] MEDS: INSULIN REGULAR 100 UNIT/ML SUBCUT SCH ×4 (11:29→21:51)
[2018-05-28] MEDS: ENOXAPARIN 40 MG/0.4 ML SYRINGE SUBCUT SCH (11:30)
[2018-05-28] MEDS: methylPREDNISolone SOD SUC 40 MG/1 ML VIAL IV SCH ×2 (11:33→23:49)
[2018-05-28] MEDS: FUROSEMIDE 40 MG/4 ML VIAL IV SCH (11:38)
[2018-05-28] MEDS: METOPROLOL SUCCINATE XL 50 MG TABLET PO SCH (16:41)
[2018-05-28] MEDS: ATORVASTATIN 80 MG TABLET PO SCH (21:50)
[2018-05-29] MEDS: ALBUTEROL/IPRATROPIUM 3 ML NEB RESP TX SCH ×4 (01:20→20:08)
[2018-05-29] MEDS: MEROPENEM 500 MG in SODIUM CHLORIDE 0.9% 100 ML IV SCH (04:49)
[2018-05-29 05:14] LABS: Basophils % 0.1 % (0.0-0.8); Hematocrit 30.7 VOL% (42.0-52.0); Immature Granulocytes % 2.1 %; Immature Granulocytes Absolute 0.32 #; Lymphocytes # 2.1 10*3/uL (1.4-4.0); Lymphocytes % 13.7 % (21.2-54.2); Mean Corpuscular HGB Conc 32.6 GM/DL (32-36); Mean Corpuscular Hemoglobin 29 PG (27-34); Mean Corpuscular Volume 89.5 FL (87-102); Mean Platelet Volume 10.2 FL (9.6-12.0); Monocytes # 0.5 10*3/uL (0.11-0.8); Neutrophils # 12.3 10*3/uL (1.4-7.4); Neutrophils % 81.1 % (38.7-73.9); Platelet Count 323 T/CUMM (130-400); Red Blood Count 3.43 MC/CUMM (3.8-5.5); Red Cell Distribution Width 14.6 % (9.3-17.3); White Blood Count 15.2 T/CUMM (4-12)
[2018-05-29 05:36] LABS: Calcium 8.8 MG/DL (8.5-10.1); Osmolality,Calculated 273.5 MOS/KG (273-304); Potassium 4.4 MMOL/L (3.5-5.1)
[2018-05-29] MEDS: INSULIN REGULAR 100 UNIT/ML SUBCUT SCH ×4 (08:55→21:25)
[2018-05-29] MEDS: LEVOFLOXACIN 500 MG TABLET PO SCH (08:56)
[2018-05-29] MEDS: ASPIRIN EC 81 MG TABLET PO SCH (08:56)
[2018-05-29] MEDS: RANOLAZINE 500 MG TABLET PO SCH ×2 (08:56→21:26)
[2018-05-29] MEDS: THEOPHYLLINE ER 300 MG TABLET PO SCH ×2 (08:56→21:26)
[2018-05-29] MEDS: CLOPIDOGREL 75 MG TABLET PO SCH (08:56)
[2018-05-29] MEDS: GABAPENTIN 300 MG CAPSULE PO SCH ×2 (08:56→21:27)
[2018-05-29] MEDS: FUROSEMIDE 40 MG TABLET PO SCH (08:56)
[2018-05-29] MEDS: PANTOPRAZOLE 40 MG TABLET PO SCH (08:56)
[2018-05-29] MEDS: METOPROLOL SUCCINATE XL 50 MG TABLET PO SCH (08:56)
[2018-05-29] MEDS: NICOTINE 7 MG/24 HR PATCH TRANSDERM SCH (08:57)
[2018-05-29] MEDS: ENOXAPARIN 40 MG/0.4 ML SYRINGE SUBCUT SCH (08:58)
[2018-05-29] MEDS ORDERED: predniSONE 20 MG TABLET PO SCH (09:00)
[2018-05-29] MEDS ORDERED: DICYCLOMINE 10 MG CAPSULE PO PRN (14:48)
[2018-05-29] MEDS: MORPHINE 4 MG/1 ML VIAL IV PRN (18:52)
[2018-05-29] MEDS: ATORVASTATIN 80 MG TABLET PO SCH (21:27)
[2018-05-29] MEDS: NITROGLYCERIN 2% OINT 1 INCH/GM PACK TOP SCH (22:02)
[2018-05-30] MEDS: ALBUTEROL/IPRATROPIUM 3 ML NEB RESP TX SCH ×4 (00:20→18:48)
[2018-05-30 03:44] LABS: Basophils % 0.2 % (0.0-0.8); Hematocrit 32.1 VOL% (42.0-52.0); Hemoglobin 10.2 GM/DL (14.0-18.0); Immature Granulocytes % 2.1 %; Immature Granulocytes Absolute 0.36 #; Lymphocytes # 2.9 10*3/uL (1.4-4.0); Lymphocytes % 16.8 % (21.2-54.2); Mean Corpuscular HGB Conc 31.8 GM/DL (32-36); Mean Corpuscular Hemoglobin 30 PG (27-34); Mean Corpuscular Volume 93.6 FL (87-102); Mean Platelet Volume 9.7 FL (9.6-12.0); Monocytes # 1.4 10*3/uL (0.11-0.8); Monocytes % 8.2 % (1.7-12.7); Neutrophils # 12.3 10*3/uL (1.4-7.4); Neutrophils % 72.7 % (38.7-73.9); Platelet Count 353 T/CUMM (130-400); Red Blood Count 3.43 MC/CUMM (3.8-5.5); Red Cell Distribution Width 14.6 % (9.3-17.3)
[2018-05-30 04:18] LABS: Calcium 8.9 MG/DL (8.5-10.1); Osmolality,Calculated 272.5 MOS/KG (273-304); Potassium 4.3 MMOL/L (3.5-5.1)
[2018-05-30] MEDS ORDERED: predniSONE 20 MG TABLET PO SCH (08:05)
[2018-05-30] MEDS: NICOTINE 7 MG/24 HR PATCH TRANSDERM SCH (08:23)
[2018-05-30] MEDS: INSULIN REGULAR 100 UNIT/ML SUBCUT SCH ×4 (08:23→21:09)
[2018-05-30] MEDS: ENOXAPARIN 40 MG/0.4 ML SYRINGE SUBCUT SCH (08:23)
[2018-05-30] MEDS: LEVOFLOXACIN 500 MG TABLET PO SCH (08:24)
[2018-05-30] MEDS: GABAPENTIN 300 MG CAPSULE PO SCH ×2 (08:24→20:13)
[2018-05-30] MEDS: THEOPHYLLINE ER 300 MG TABLET PO SCH ×2 (08:24→20:13)
[2018-05-30] MEDS: RANOLAZINE 500 MG TABLET PO SCH ×2 (08:24→20:13)
[2018-05-30] MEDS: CLOPIDOGREL 75 MG TABLET PO SCH (08:24)
[2018-05-30] MEDS: METOPROLOL SUCCINATE XL 50 MG TABLET PO SCH (08:25)
[2018-05-30] MEDS: FUROSEMIDE 40 MG TABLET PO SCH (08:25)
[2018-05-30] MEDS: ASPIRIN EC 81 MG TABLET PO SCH (08:25)
[2018-05-30] MEDS: PANTOPRAZOLE 40 MG TABLET PO SCH (08:25)
[2018-05-30] MEDS: metOLazone 2.5 MG TABLET PO SCH (08:29)
[2018-05-30] MEDS: ACETAMINOPHEN 325 MG TABLET PO PRN (20:13)
[2018-05-30] MEDS: ATORVASTATIN 80 MG TABLET PO SCH (20:13)
[2018-05-31] MEDS: ACETAMINOPHEN 325 MG TABLET PO PRN (03:02)
[2018-05-31 04:22] LABS: Basophils % 0.3 % (0.0-0.8); Hematocrit 33.3 VOL% (42.0-52.0); Hemoglobin 10.8 GM/DL (14.0-18.0); Immature Granulocytes % 2.6 %; Immature Granulocytes Absolute 0.39 #; Lymphocytes # 2.9 10*3/uL (1.4-4.0); Lymphocytes % 19.2 % (21.2-54.2); Mean Corpuscular HGB Conc 32.4 GM/DL (32-36); Mean Corpuscular Hemoglobin 30 PG (27-34); Mean Corpuscular Volume 91.5 FL (87-102); Mean Platelet Volume 9.7 FL (9.6-12.0); Monocytes # 1.6 10*3/uL (0.11-0.8); Monocytes % 10.8 % (1.7-12.7); NRBC # 0.02 10*3/uL; Neutrophils # 10.1 10*3/uL (1.4-7.4); Neutrophils % 67.1 % (38.7-73.9); Platelet Count 325 T/CUMM (130-400); Red Blood Count 3.64 MC/CUMM (3.8-5.5); Red Cell Distribution Width 14.6 % (9.3-17.3); White Blood Count 15.1 T/CUMM (4-12)
[2018-05-31 04:36] LABS: Calcium 8.8 MG/DL (8.5-10.1); Osmolality,Calculated 262.8 MOS/KG (273-304); Potassium 3.3 MMOL/L (3.5-5.1)
[2018-05-31] MEDS: ALBUTEROL/IPRATROPIUM 3 ML NEB RESP TX SCH ×3 (07:44→19:08)
[2018-05-31] MEDS: INSULIN REGULAR 100 UNIT/ML SUBCUT SCH ×4 (10:05→22:23)
[2018-05-31] MEDS: RANOLAZINE 500 MG TABLET PO SCH ×2 (10:06→22:21)
[2018-05-31] MEDS: metOLazone 2.5 MG TABLET PO SCH (10:06)
[2018-05-31] MEDS: THEOPHYLLINE ER 300 MG TABLET PO SCH ×2 (10:07→22:22)
[2018-05-31] MEDS: GABAPENTIN 300 MG CAPSULE PO SCH ×2 (10:07→22:22)
[2018-05-31] MEDS: predniSONE 10 MG TABLET PO SCH (10:07)
[2018-05-31] MEDS: FUROSEMIDE 40 MG TABLET PO SCH (10:07)
[2018-05-31] MEDS: LEVOFLOXACIN 500 MG TABLET PO SCH (10:07)
[2018-05-31] MEDS: PANTOPRAZOLE 40 MG TABLET PO SCH (10:08)
[2018-05-31] MEDS: ENOXAPARIN 40 MG/0.4 ML SYRINGE SUBCUT SCH (10:08)
[2018-05-31] MEDS: ASPIRIN EC 81 MG TABLET PO SCH (10:08)
[2018-05-31] MEDS: METOPROLOL SUCCINATE XL 50 MG TABLET PO SCH (10:08)
[2018-05-31] MEDS: MORPHINE 4 MG/1 ML VIAL IV PRN (10:26)
[2018-05-31] MEDS: CLOPIDOGREL 75 MG TABLET PO SCH (10:36)
[2018-05-31] MEDS: POTASSIUM CHLORIDE 20 MEQ TABLET PO PRN ×3 (10:52→14:29)
[2018-05-31 11:19] LABS: Albumin 3.1 G/DL (3.4-5.0); Bilirubin,Direct 0.21 MG/DL (0.0-0.20); Bilirubin,Indirect 0.5 MG/DL (0.0-1.0); Bilirubin,Total 0.7 MG/DL (0.2-1.0); Total Protein 6.7 G/DL (6.4-8.3)
[2018-05-31] MEDS ORDERED: LEVOFLOXACIN INJ 750 MG in PREMIX 1 EACH IV SCH (12:00)
[2018-05-31] MEDS: metroNIDAZOLE INJ 500 MG in PREMIX 1 EACH IV SCH ×2 (12:38→18:40)
[2018-05-31] MEDS: NICOTINE 7 MG/24 HR PATCH TRANSDERM SCH (14:33)
[2018-05-31] MEDS: ATORVASTATIN 80 MG TABLET PO SCH (22:21)
[2018-06-01] MEDS: ALBUTEROL/IPRATROPIUM 3 ML NEB RESP TX SCH ×5 (00:36→19:09)
[2018-06-01] MEDS: metroNIDAZOLE INJ 500 MG in PREMIX 1 EACH IV SCH ×3 (03:12→22:27)
[2018-06-01 04:14] LABS: Basophils # 0.1 10*3/uL (0.0-0.2); Basophils % 0.3 % (0.0-0.8); Eosinophils % 0.1 % (0.00-10.9); Hematocrit 33.7 VOL% (42.0-52.0); Hemoglobin 11.5 GM/DL (14.0-18.0); Immature Granulocytes % 3.1 %; Lymphocytes # 2.9 10*3/uL (1.4-4.0); Lymphocytes % 17.6 % (21.2-54.2); Mean Corpuscular HGB Conc 34.1 GM/DL (32-36); Mean Corpuscular Hemoglobin 30 PG (27-34); Mean Corpuscular Volume 88.9 FL (87-102); Mean Platelet Volume 9.8 FL (9.6-12.0); Monocytes # 1.4 10*3/uL (0.11-0.8); Monocytes % 8.3 % (1.7-12.7); NRBC # 0.03 10*3/uL; Neutrophils # 11.5 10*3/uL (1.4-7.4); Neutrophils % 70.6 % (38.7-73.9); Platelet Count 327 T/CUMM (130-400); Red Blood Count 3.79 MC/CUMM (3.8-5.5); Red Cell Distribution Width 14.6 % (9.3-17.3); White Blood Count 16.3 T/CUMM (4-12)
[2018-06-01] MEDS: ONDANSETRON 4 MG/2 ML VIAL IV PRN (04:20)
[2018-06-01 05:01] LABS: Calcium 8.9 MG/DL (8.5-10.1); Osmolality,Calculated 257.4 MOS/KG (273-304); Potassium 3.1 MMOL/L (3.5-5.1)
[2018-06-01] MEDS ORDERED: POTASSIUM CHLORIDE RIDER 10 MEQ in PREMIX 1 EACH IV PRN ×2 (06:01→06:12)
[2018-06-01] MEDS: LEVOFLOXACIN INJ 750 MG in PREMIX 1 EACH IV SCH (09:50)
[2018-06-01] MEDS: ENOXAPARIN 40 MG/0.4 ML SYRINGE SUBCUT SCH (09:54)
[2018-06-01] MEDS: INSULIN REGULAR 100 UNIT/ML SUBCUT SCH ×4 (09:56→22:29)
[2018-06-01] MEDS: GABAPENTIN 300 MG CAPSULE PO SCH ×2 (09:56→22:28)
[2018-06-01] MEDS: POTASSIUM CHLORIDE 20 MEQ TABLET PO PRN ×5 (09:56→22:27)
[2018-06-01] MEDS: THEOPHYLLINE ER 300 MG TABLET PO SCH ×2 (09:56→22:28)
[2018-06-01] MEDS: POTASSIUM CHLORIDE 20 MEQ TABLET PO SCH (09:56)
[2018-06-01] MEDS: RANOLAZINE 500 MG TABLET PO SCH ×2 (09:56→22:27)
[2018-06-01] MEDS: CLOPIDOGREL 75 MG TABLET PO SCH (09:57)
[2018-06-01] MEDS: PANTOPRAZOLE 40 MG TABLET PO SCH (09:57)
[2018-06-01] MEDS: predniSONE 10 MG TABLET PO SCH (09:57)
[2018-06-01] MEDS: ASPIRIN EC 81 MG TABLET PO SCH (09:57)
[2018-06-01] MEDS: METOPROLOL SUCCINATE XL 50 MG TABLET PO SCH (10:11)
[2018-06-01] MEDS: FUROSEMIDE 40 MG TABLET PO SCH (10:12)
[2018-06-01] MEDS: NICOTINE 7 MG/24 HR PATCH TRANSDERM SCH (10:29)
[2018-06-01] MEDS ORDERED: METOPROLOL TARTRATE 25 MG TABLET ONE (13:56)
[2018-06-01] MEDS: METOPROLOL SUCCINATE XL 25 MG TABLET PO SCH (14:08)
[2018-06-01] MEDS: ATORVASTATIN 80 MG TABLET PO SCH (22:28)
[2018-06-02] MEDS: ALBUTEROL/IPRATROPIUM 3 ML NEB RESP TX SCH ×5 (00:56→19:46)
[2018-06-02] MEDS: metroNIDAZOLE INJ 500 MG in PREMIX 1 EACH IV SCH ×3 (04:08→20:47)
[2018-06-02 05:55] LABS: Basophils % 0.2 % (0.0-0.8); Eosinophils % 0.1 % (0.00-10.9); Hematocrit 30.8 VOL% (42.0-52.0); Hemoglobin 10.1 GM/DL (14.0-18.0); Immature Granulocytes % 2.4 %; Immature Granulocytes Absolute 0.38 #; Lymphocytes # 2.4 10*3/uL (1.4-4.0); Mean Corpuscular HGB Conc 32.8 GM/DL (32-36); Mean Corpuscular Hemoglobin 30 PG (27-34); Mean Corpuscular Volume 90.9 FL (87-102); Mean Platelet Volume 9.4 FL (9.6-12.0); Monocytes # 1.1 10*3/uL (0.11-0.8); Monocytes % 6.7 % (1.7-12.7); Neutrophils # 11.9 10*3/uL (1.4-7.4); Neutrophils % 75.6 % (38.7-73.9); Platelet Count 276 T/CUMM (130-400); Red Blood Count 3.39 MC/CUMM (3.8-5.5); Red Cell Distribution Width 14.6 % (9.3-17.3); White Blood Count 15.8 T/CUMM (4-12)
[2018-06-02 06:09] LABS: Calcium 8.3 MG/DL (8.5-10.1); Osmolality,Calculated 260.8 MOS/KG (273-304); Potassium 3.5 MMOL/L (3.5-5.1)
[2018-06-02] MEDS: LEVOFLOXACIN INJ 750 MG in PREMIX 1 EACH IV SCH (14:00)
[2018-06-02] MEDS: GABAPENTIN 300 MG CAPSULE PO SCH ×2 (14:01→20:48)
[2018-06-02] MEDS: THEOPHYLLINE ER 300 MG TABLET PO SCH ×2 (14:01→20:48)
[2018-06-02] MEDS: RANOLAZINE 500 MG TABLET PO SCH ×2 (14:02→20:48)
[2018-06-02] MEDS: CLOPIDOGREL 75 MG TABLET PO SCH (15:15)
[2018-06-02] MEDS: METOPROLOL SUCCINATE XL 25 MG TABLET PO SCH (15:15)
[2018-06-02] MEDS: FUROSEMIDE 40 MG TABLET PO SCH (15:15)
[2018-06-02] MEDS: POTASSIUM CHLORIDE 20 MEQ TABLET PO SCH (15:16)
[2018-06-02] MEDS: PANTOPRAZOLE 40 MG TABLET PO SCH (15:16)
[2018-06-02] MEDS: ASPIRIN EC 81 MG TABLET PO SCH (15:16)
[2018-06-02] MEDS: ENOXAPARIN 40 MG/0.4 ML SYRINGE SUBCUT SCH (15:17)
[2018-06-02] MEDS: INSULIN REGULAR 100 UNIT/ML SUBCUT SCH ×3 (15:17→21:42)
[2018-06-02] MEDS: predniSONE 10 MG TABLET PO SCH (15:17)
[2018-06-02] MEDS: NICOTINE 7 MG/24 HR PATCH TRANSDERM SCH (15:28)
[2018-06-02] MEDS: METOPROLOL SUCCINATE XL 50 MG TABLET PO SCH (15:45)
[2018-06-02] MEDS: DICYCLOMINE 10 MG CAPSULE PO SCH ×2 (16:48→20:48)
[2018-06-02] MEDS: ATORVASTATIN 80 MG TABLET PO SCH (20:48)
[2018-06-03] MEDS: ALBUTEROL/IPRATROPIUM 3 ML NEB RESP TX SCH ×4 (01:38→18:59)
[2018-06-03] MEDS: metroNIDAZOLE INJ 500 MG in PREMIX 1 EACH IV SCH ×3 (04:28→21:13)
[2018-06-03 06:35] LABS: Basophils % 0.1 % (0.0-0.8); Hematocrit 30.1 VOL% (42.0-52.0); Hemoglobin 10.1 GM/DL (14.0-18.0); Immature Granulocytes % 2.3 %; Immature Granulocytes Absolute 0.32 #; Lymphocytes # 2.5 10*3/uL (1.4-4.0); Lymphocytes % 18.1 % (21.2-54.2); Mean Corpuscular HGB Conc 33.6 GM/DL (32-36); Mean Corpuscular Hemoglobin 30 PG (27-34); Mean Corpuscular Volume 89.6 FL (87-102); Mean Platelet Volume 9.5 FL (9.6-12.0); Monocytes # 0.9 10*3/uL (0.11-0.8); Monocytes % 6.4 % (1.7-12.7); Neutrophils % 73.1 % (38.7-73.9); Platelet Count 262 T/CUMM (130-400); Red Blood Count 3.36 MC/CUMM (3.8-5.5); Red Cell Distribution Width 14.6 % (9.3-17.3); White Blood Count 13.7 T/CUMM (4-12)
[2018-06-03 06:47] LABS: Calcium 8.2 MG/DL (8.5-10.1); Osmolality,Calculated 261.9 MOS/KG (273-304); Potassium 3.1 MMOL/L (3.5-5.1)
[2018-06-03] MEDS: INSULIN REGULAR 100 UNIT/ML SUBCUT SCH ×4 (07:45→21:15)
[2018-06-03] MEDS: THEOPHYLLINE ER 300 MG TABLET PO SCH ×2 (08:47→21:15)
[2018-06-03] MEDS: DICYCLOMINE 10 MG CAPSULE PO SCH ×4 (08:47→21:15)
[2018-06-03] MEDS: RANOLAZINE 500 MG TABLET PO SCH ×2 (08:47→21:15)
[2018-06-03] MEDS: METOPROLOL SUCCINATE XL 25 MG TABLET PO SCH (08:47)
[2018-06-03] MEDS: GABAPENTIN 300 MG CAPSULE PO SCH ×2 (08:47→21:15)
[2018-06-03] MEDS: CLOPIDOGREL 75 MG TABLET PO SCH (08:48)
[2018-06-03] MEDS: FUROSEMIDE 40 MG TABLET PO SCH (08:48)
[2018-06-03] MEDS: ASPIRIN EC 81 MG TABLET PO SCH (08:48)
[2018-06-03] MEDS: PANTOPRAZOLE 40 MG TABLET PO SCH (08:48)
[2018-06-03] MEDS: NICOTINE 7 MG/24 HR PATCH TRANSDERM SCH (08:49)
[2018-06-03] MEDS: POTASSIUM CHLORIDE 20 MEQ TABLET PO SCH (08:49)
[2018-06-03] MEDS: ENOXAPARIN 40 MG/0.4 ML SYRINGE SUBCUT SCH (09:10)
[2018-06-03] MEDS: LEVOFLOXACIN INJ 750 MG in PREMIX 1 EACH IV SCH (09:24)
[2018-06-03] MEDS: POTASSIUM CHLORIDE 20 MEQ TABLET PO PRN ×3 (11:28→16:50)
[2018-06-03] MEDS: ATORVASTATIN 80 MG TABLET PO SCH (21:14)
[2018-06-04] MEDS: ALBUTEROL/IPRATROPIUM 3 ML NEB RESP TX SCH ×4 (00:39→20:05)
[2018-06-04] MEDS: metroNIDAZOLE INJ 500 MG in PREMIX 1 EACH IV SCH ×3 (05:20→20:34)
[2018-06-04 06:20] LABS: Basophils % 0.1 % (0.0-0.8); Eosinophils % 0.2 % (0.00-10.9); Hematocrit 31.1 VOL% (42.0-52.0); Hemoglobin 10.1 GM/DL (14.0-18.0); Immature Granulocytes % 1.8 %; Immature Granulocytes Absolute 0.28 #; Lymphocytes # 2.1 10*3/uL (1.4-4.0); Lymphocytes % 14.1 % (21.2-54.2); Mean Corpuscular HGB Conc 32.5 GM/DL (32-36); Mean Corpuscular Hemoglobin 30 PG (27-34); Mean Corpuscular Volume 91.2 FL (87-102); Mean Platelet Volume 9.5 FL (9.6-12.0); Monocytes # 1.1 10*3/uL (0.11-0.8); Monocytes % 6.9 % (1.7-12.7); Neutrophils # 11.7 10*3/uL (1.4-7.4); Neutrophils % 76.9 % (38.7-73.9); Platelet Count 242 T/CUMM (130-400); Red Blood Count 3.41 MC/CUMM (3.8-5.5); Red Cell Distribution Width 14.7 % (9.3-17.3); White Blood Count 15.2 T/CUMM (4-12)
[2018-06-04 06:53] LABS: Calcium 8.2 MG/DL (8.5-10.1); Osmolality,Calculated 259.2 MOS/KG (273-304); Potassium 3.5 MMOL/L (3.5-5.1)
[2018-06-04] MEDS: POTASSIUM CHLORIDE 20 MEQ TABLET PO SCH (09:41)
[2018-06-04] MEDS: GABAPENTIN 300 MG CAPSULE PO SCH ×2 (09:42→20:15)
[2018-06-04] MEDS: DICYCLOMINE 10 MG CAPSULE PO SCH ×4 (09:42→20:15)
[2018-06-04] MEDS: METOPROLOL SUCCINATE XL 25 MG TABLET PO SCH (09:42)
[2018-06-04] MEDS: RANOLAZINE 500 MG TABLET PO SCH ×2 (09:42→20:15)
[2018-06-04] MEDS: ENOXAPARIN 40 MG/0.4 ML SYRINGE SUBCUT SCH (09:42)
[2018-06-04] MEDS: CLOPIDOGREL 75 MG TABLET PO SCH (09:42)
[2018-06-04] MEDS: NICOTINE 7 MG/24 HR PATCH TRANSDERM SCH (09:43)
[2018-06-04] MEDS: FUROSEMIDE 40 MG TABLET PO SCH (09:43)
[2018-06-04] MEDS: PANTOPRAZOLE 40 MG TABLET PO SCH (09:43)
[2018-06-04] MEDS: THEOPHYLLINE ER 300 MG TABLET PO SCH ×2 (09:43→20:15)
[2018-06-04] MEDS: INSULIN REGULAR 100 UNIT/ML SUBCUT SCH ×4 (09:43→20:16)
[2018-06-04] MEDS: ASPIRIN EC 81 MG TABLET PO SCH (09:43)
[2018-06-04] MEDS: LEVOFLOXACIN INJ 750 MG in PREMIX 1 EACH IV SCH (10:10)
[2018-06-04] MEDS: ACETAMINOPHEN 500 MG TABLET PO SCH ×2 (14:23→23:19)
[2018-06-04] MEDS ORDERED: LIDOCAINE 2% 20 ML VIAL ONE (15:14)
[2018-06-04] MEDS: ATORVASTATIN 80 MG TABLET PO SCH (20:15)
[2018-06-05] MEDS: ALBUTEROL/IPRATROPIUM 3 ML NEB RESP TX SCH ×3 (01:54→19:27)
[2018-06-05] MEDS: metroNIDAZOLE INJ 500 MG in PREMIX 1 EACH IV SCH ×3 (02:52→22:02)
[2018-06-05] MEDS: ACETAMINOPHEN 500 MG TABLET PO SCH ×3 (05:04→18:45)
[2018-06-05] MEDS: LEVOFLOXACIN INJ 750 MG in PREMIX 1 EACH IV SCH (08:54)
[2018-06-05] MEDS: CLOPIDOGREL 75 MG TABLET PO SCH (08:55)
[2018-06-05] MEDS: ASPIRIN EC 81 MG TABLET PO SCH (08:55)
[2018-06-05] MEDS: RANOLAZINE 500 MG TABLET PO SCH ×2 (08:55→22:02)
[2018-06-05] MEDS: FUROSEMIDE 40 MG TABLET PO SCH (08:55)
[2018-06-05] MEDS: GABAPENTIN 300 MG CAPSULE PO SCH ×2 (08:56→22:05)
[2018-06-05] MEDS: DICYCLOMINE 10 MG CAPSULE PO SCH ×4 (08:56→22:02)
[2018-06-05] MEDS: PANTOPRAZOLE 40 MG TABLET PO SCH (08:56)
[2018-06-05] MEDS: ENOXAPARIN 40 MG/0.4 ML SYRINGE SUBCUT SCH (08:56)
[2018-06-05] MEDS: THEOPHYLLINE ER 300 MG TABLET PO SCH ×2 (08:56→22:01)
[2018-06-05] MEDS: POTASSIUM CHLORIDE 20 MEQ TABLET PO SCH (08:57)
[2018-06-05] MEDS: INSULIN REGULAR 100 UNIT/ML SUBCUT SCH ×3 (09:26→16:45)
[2018-06-05] MEDS: METOPROLOL SUCCINATE XL 25 MG TABLET PO SCH (10:15)
[2018-06-05] MEDS: NICOTINE 7 MG/24 HR PATCH TRANSDERM SCH (15:05)
[2018-06-05] MEDS: ONDANSETRON 4 MG/2 ML VIAL IV PRN (18:38)
[2018-06-05] MEDS: ATORVASTATIN 80 MG TABLET PO SCH (22:02)
[2018-06-06] MEDS: ALBUTEROL/IPRATROPIUM 3 ML NEB RESP TX SCH ×4 (01:01→20:00)
[2018-06-06] MEDS: INSULIN REGULAR 100 UNIT/ML SUBCUT SCH ×5 (01:18→21:43)
[2018-06-06] MEDS: ACETAMINOPHEN 500 MG TABLET PO SCH ×4 (01:19→21:44)
[2018-06-06] MEDS: metroNIDAZOLE INJ 500 MG in PREMIX 1 EACH IV SCH ×2 (03:35→17:23)
[2018-06-06 05:54] LABS: Basophils % 0.1 % (0.0-0.8); Eosinophils % 0.2 % (0.00-10.9); Hematocrit 30.2 VOL% (42.0-52.0); Hemoglobin 10.3 GM/DL (14.0-18.0); Immature Granulocytes % 1.3 %; Immature Granulocytes Absolute 0.22 #; Lymphocytes # 1.9 10*3/uL (1.4-4.0); Lymphocytes % 11.4 % (21.2-54.2); Mean Corpuscular HGB Conc 34.1 GM/DL (32-36); Mean Corpuscular Hemoglobin 30 PG (27-34); Mean Platelet Volume 9.4 FL (9.6-12.0); Monocytes # 1.1 10*3/uL (0.11-0.8); Monocytes % 6.7 % (1.7-12.7); Neutrophils # 13.3 10*3/uL (1.4-7.4); Neutrophils % 80.3 % (38.7-73.9); Platelet Count 191 T/CUMM (130-400); Red Blood Count 3.43 MC/CUMM (3.8-5.5); Red Cell Distribution Width 14.7 % (9.3-17.3); White Blood Count 16.5 T/CUMM (4-12)
[2018-06-06 06:28] LABS: Calcium 8.2 MG/DL (8.5-10.1); Osmolality,Calculated 254.4 MOS/KG (273-304); Potassium 3.2 MMOL/L (3.5-5.1)
[2018-06-06] MEDS: DICYCLOMINE 10 MG CAPSULE PO SCH ×4 (08:00→21:47)
[2018-06-06] MEDS ORDERED: MAGNESIUM SULF RIDER 2 GM in PREMIX 1 EACH IV PRN (08:29)
[2018-06-06] MEDS ORDERED: MAGNESIUM SULF RIDER 4 GM in PREMIX 1 EACH IV PRN (08:29)
[2018-06-06] MEDS ORDERED: POTASSIUM CHLORIDE 20 MEQ TABLET PO ONE (08:57)
[2018-06-06] MEDS ORDERED: SODIUM CHLORIDE 0.9% 1,000 ML IV SCH (09:00)
[2018-06-06] MEDS: LEVOFLOXACIN INJ 750 MG in PREMIX 1 EACH IV SCH ×2 (09:00→15:40)
[2018-06-06] MEDS: METOPROLOL SUCCINATE XL 25 MG TABLET PO SCH (11:35)
[2018-06-06] MEDS: ENOXAPARIN 40 MG/0.4 ML SYRINGE SUBCUT SCH (11:35)
[2018-06-06] MEDS: GABAPENTIN 300 MG CAPSULE PO SCH ×2 (11:36→21:47)
[2018-06-06] MEDS: THEOPHYLLINE ER 300 MG TABLET PO SCH ×2 (11:36→21:47)
[2018-06-06] MEDS: PANTOPRAZOLE 40 MG TABLET PO SCH (11:36)
[2018-06-06] MEDS: RANOLAZINE 500 MG TABLET PO SCH ×2 (11:37→21:47)
[2018-06-06] MEDS: ASPIRIN EC 81 MG TABLET PO SCH (11:37)
[2018-06-06] MEDS: CLOPIDOGREL 75 MG TABLET PO SCH (11:37)
[2018-06-06] MEDS: FUROSEMIDE 40 MG TABLET PO SCH (11:37)
[2018-06-06] MEDS: POTASSIUM CHLORIDE 20 MEQ TABLET PO SCH ×2 (11:57→21:48)
[2018-06-06] MEDS: MEPERIDINE 25 MG/1 ML VIAL IV PRN ×2 (13:14→20:46)
[2018-06-06] MEDS: methylPREDNISolone SOD SUC 40 MG/1 ML VIAL IV SCH ×2 (13:17→21:48)
[2018-06-06] MEDS: NICOTINE 7 MG/24 HR PATCH TRANSDERM SCH (16:45)
[2018-06-06] MEDS: SODIUM CHLOR 0.9% KCL 40 MEQ 40 MEQ/1,000 ML BAG IV SCH (21:45)
[2018-06-06] MEDS: ATORVASTATIN 80 MG TABLET PO SCH (21:47)
[2018-06-07] MEDS: ALBUTEROL/IPRATROPIUM 3 ML NEB RESP TX SCH ×3 (01:08→15:14)
[2018-06-07] MEDS: methylPREDNISolone SOD SUC 40 MG/1 ML VIAL IV SCH ×2 (03:50→10:10)
[2018-06-07 06:09] LABS: Hematocrit 29.4 VOL% (42.0-52.0); Hemoglobin 9.8 GM/DL (14.0-18.0); Immature Granulocytes Absolute 0.11 #; Lymphocytes # 1.5 10*3/uL (1.4-4.0); Lymphocytes % 13.6 % (21.2-54.2); Mean Corpuscular HGB Conc 33.3 GM/DL (32-36); Mean Corpuscular Hemoglobin 30 PG (27-34); Mean Corpuscular Volume 89.6 FL (87-102); Monocytes # 0.2 10*3/uL (0.11-0.8); Monocytes % 1.6 % (1.7-12.7); Neutrophils # 9.5 10*3/uL (1.4-7.4); Neutrophils % 83.8 % (38.7-73.9); Platelet Count 191 T/CUMM (130-400); Red Blood Count 3.28 MC/CUMM (3.8-5.5); Red Cell Distribution Width 14.5 % (9.3-17.3); White Blood Count 11.3 T/CUMM (4-12)
[2018-06-07 06:23] LABS: Calcium 8.3 MG/DL (8.5-10.1); Osmolality,Calculated 261.6 MOS/KG (273-304); Potassium 4.9 MMOL/L (3.5-5.1)
[2018-06-07] MEDS ORDERED: SODIUM CHLORIDE 3% INJ 500 ML IV SCH (09:00)
[2018-06-07] MEDS: INSULIN REGULAR 100 UNIT/ML SUBCUT SCH ×2 (09:08→12:14)
[2018-06-07] MEDS: ACETAMINOPHEN 500 MG TABLET PO SCH ×2 (09:52→16:13)
[2018-06-07] MEDS: SODIUM CHLOR 0.9% KCL 40 MEQ 40 MEQ/1,000 ML BAG IV SCH (09:53)
[2018-06-07] MEDS: MEPERIDINE 25 MG/1 ML VIAL IV PRN (10:06)
[2018-06-07] MEDS: LEVOFLOXACIN INJ 750 MG in PREMIX 1 EACH IV SCH (10:13)
[2018-06-07] MEDS: CLOPIDOGREL 75 MG TABLET PO SCH (10:20)
[2018-06-07] MEDS: POTASSIUM CHLORIDE 20 MEQ TABLET PO SCH (10:20)
[2018-06-07] MEDS: METOPROLOL SUCCINATE XL 25 MG TABLET PO SCH (10:21)
[2018-06-07] MEDS: PANTOPRAZOLE 40 MG TABLET PO SCH (10:21)
[2018-06-07] MEDS: GABAPENTIN 300 MG CAPSULE PO SCH (10:21)
[2018-06-07] MEDS: DICYCLOMINE 10 MG CAPSULE PO SCH ×2 (10:22→12:13)
[2018-06-07] MEDS: RANOLAZINE 500 MG TABLET PO SCH (10:22)
[2018-06-07] MEDS: ASPIRIN EC 81 MG TABLET PO SCH (10:22)
[2018-06-07] MEDS: ENOXAPARIN 40 MG/0.4 ML SYRINGE SUBCUT SCH (10:22)
[2018-06-07] MEDS: NICOTINE 7 MG/24 HR PATCH TRANSDERM SCH (10:24)
[2018-06-07] MEDS: THEOPHYLLINE ER 300 MG TABLET PO SCH (10:33)
[2018-06-07 16:58] VITALS: BP 129/60
== END 2018-06-07 16:50 | DRG 250 ==
LOC: SUATTDRO → N.ED 04:58 → N.EDINP 06:15 → SUATTDRO 06:15 → N.ICU 11:52 → N.TELEN 05-26 13:41
PROVIDERS: ADMIT Internal Medicine Geriatric Medicine; ATTEND Internal Medicine
PROC: CLCCHCL (ICD-10-PCS; 2018-05-25 09:15)